=== PATIENT | female | born 1955 ===

== ENCOUNTER → 2020-11-11 13:43 | Outpatient (BNVA) | payer MEDICARE, SELFPAY | PROVIDERS: PCP Family Medicine; Visit Provider Anesthesiology | DX: M54.5 Low back pain (principal); M46.1 Sacroiliitis, not elsewhere classified; M48.00 Spinal stenosis, site unspecified; G47.30 Sleep apnea, unspecified; K80.80 Other cholelithiasis without obstruction; E66.01 Morbid (severe) obesity due to excess calories; E78.00 Pure hypercholesterolemia, unspecified; K75.81 Nonalcoholic steatohepatitis (NASH); Z68.42 Body mass index [BMI] 45.0-49.9, adult; Z87.442 Personal history of urinary calculi | CPT/HCPCS: Q3014 ==

== ENCOUNTER 2020-12-24 05:40 | Outpatient (REF) | payer MEDICARE, SELFPAY ==
--- NOTE | ~2020-12-24 | FL_ITS ---
EXAMINATION: XR FLUOROSCOPY WITH IMAGES CLINICAL INFORMATION: M46.1 - Sacroiliitis, not elsewhere classified COMPARISON: None. TECHNIQUE: Fluoroscopy performed by Dr. Hermelindo Blanc. Fluoroscopy time: Under 1 minute DAP: 1.9 Gycm2 Images: 1 FINDINGS: There is spinal needle overlying the lower right SI joint. Contrast is seen in the periarticular soft tissues with probable early intra-articular contrast. No visible vascular communication. FL/FL guidance in treatment room IMPRESSION: Fluoroscopy for pain management procedure.
== END 2020-12-24 05:41 | disposition home or self-care (01) ==
LOC: HO.RADIR 05:40
PROVIDERS: Visit Provider Anesthesiology
DX: M46.1 Sacroiliitis, not elsewhere classified (principal); M48.00 Spinal stenosis, site unspecified; M54.50 Low back pain, unspecified
CPT/HCPCS: 27096; J3300; Q9967

== ENCOUNTER → 2021-01-22 08:30 | Outpatient (BNVA) | payer MEDICARE, SELFPAY | PROVIDERS: PCP Family Medicine; Visit Provider Anesthesiology | DX: M46.1 Sacroiliitis, not elsewhere classified (principal); M48.00 Spinal stenosis, site unspecified; M54.59 Other low back pain | CPT/HCPCS: 99212 ==

== ENCOUNTER 2021-07-07 08:34 | Outpatient (REF) | payer MEDICARE, SELFPAY ==
--- NOTE | ~2021-07-07 | XR_ITS ---
EXAMINATION: XR HAND, LEFT CLINICAL INFORMATION: Pain COMPARISON: None TECHNIQUE: PA, lateral, and oblique views of the left hand. FINDINGS: There are degenerative osteoarthritic changes involving primarily the distal interphalangeal joints of all fingers especially the second. The proximal interphalangeal joints are less involved. Minimal involvement of the metacarpophalangeal joints. No bone erosions. No fracture. Bone alignments are satisfactory. Surrounding soft tissue unremarkable. XR/XR hand LT min 3V IMPRESSION: Mild degenerative osteoarthritis.
== END 2021-07-07 08:35 | disposition home or self-care (01) ==
LOC: HO.HOSX 08:34
PROVIDERS: Visit Provider Physician Assistant
DX: M79.642 Pain in left hand (principal); S62.601A Fracture of unspecified phalanx of left index finger, initial encounter for closed fracture; W22.8XXA Striking against or struck by other objects, initial encounter; Y93.9 Activity, unspecified; Y92.9 Unspecified place or not applicable; Y99.8 Other external cause status
CPT/HCPCS: 73130; 99202